=== PATIENT | male | born 1955 | race Caucasian/White ===

== ENCOUNTER 2022-11-22 08:18 | Emergency (ER) | payer BC, MEDICAID ==
[~2022-11-22] VITALS: Ht 170.2 cm; Wt 131.0 kg
[2022-11-22 08:23] VITALS: BP 159/82; PULSE 107; RESP 20; TEMP 98.2; O2SAT 97
== END 2022-11-22 12:22 | disposition home or self-care (01) ==
LOC: ER 08:18
DX: Z00.00 Encounter for general adult medical examination without abnormal findings (principal); Z59.00 Homelessness unspecified
CPT/HCPCS: 99281